=== PATIENT | male | born 1940 | race Caucasian/White ===

== ENCOUNTER 2017-10-08 21:05 | Inpatient (IN) | payer OTHER, MEDICARE ==
[~2017-10-08] VITALS: Ht 182.9 cm; Wt 88.3 kg
[2017-10-09 00:10] VITALS: BP 154/89; PULSE 108; TEMP 36.8; O2SAT 97; Ht 182.9 cm; Wt 88.3 kg
[2017-10-09] MEDS ORDERED: ATOR10TA82 PO (00:38)
[2017-10-09] MEDS ORDERED: LISI-788 PO (00:38)
[2017-10-09] MEDS ORDERED: PANT40TA PO (00:38)
[2017-10-09] MEDS ORDERED: ALUMINUM/MAGNESIUM/SIMETH (MAALOX MAX) 30 ML UDC PO PRN (01:45)
[2017-10-09] MEDS ORDERED: MAGNESIUM HYDROXIDE SUSP 30 ML UDC PO PRN (01:45)
[2017-10-09] MEDS ORDERED: POLYETHYLENE (MIRALAX) 17 GM PACK PO PRN (01:45)
[2017-10-09] MEDS ORDERED: ONDANSETRON INJ 2 MG/ML 2 ML VIAL IV PRN (01:45)
[2017-10-09] MEDS ORDERED: ZOLPIDEM TARTRATE 5 MG TAB PO PRN (01:45)
[2017-10-09] MEDS ORDERED: ACETAMINOPHEN 325 MG TAB PO PRN (01:45)
--- NOTE | 2017-10-09 01:45 | History and Physical ---
History & Physical Date & Time of Service: Oct 09, 2017 at 01:37 Chief Complaint: Multiple Pe Primary Care Physician: Sara Kim D.O. History of Present Illness Source: patient Patient is a 76 year old male with a PMH of HTN, HLD and Perforated peptic ulcer who presented to [facility] as a direct admit from [facility] secondary to a saddle embolism. He notes that he started developing shortness of breath 4 days ago. He was cleaning his house in preparation for family visiting when he suddenly develop acute shortness of breath. He was able to continue on his activities but he felt mildly short of breath. He notes over the next 3 days he started becoming more short of breath with exertion. Today he was only able to walk several steps before becoming short of breath. He has had a productive cough associated with this shortness of breath. He notes that 10 days ago he was travelling back from [place] on a business trip. He also notes that a few weeks ago he fell and hit his right knee on the ice which was swollen for a few days. He denies any leg swelling, calf pain, chest pain, palpitations, dizziness or pre-syncope. He denies any family history of blood clots. He has lost 20 pounds in the past few months secondary to his peptic ulcer that perforated. He denies any night sweats or chills or blood in his stool. He then went to [facility] where he had a CT scan done which was significant for multiple large PE with a minimal saddle embolism w/ R heart strain. An EKG showed ST depression with a RBBB. He was started on IV heparin w/ bolus. He was also given a duoneb and mag sulfate. Past Medical/Surgical History Medical Problems: (1) Pulmonary embolism Family History Noncontributory Social History Smoking Status: Former Smoker Smokeless Tobacco Use: No Alcohol Use: none Drug Use: none Marital Status: Housing status: lives alone Occupational Status: employed Immunizations History of Influenza Vaccine: Unknown History of Tetanus Vaccine?: Unknown History of Pneumococcal: Unknown History of Hepatitis B Vaccine: Unknown Allergies Coded Allergies: Aspirin (Verified Allergy, Unknown, n/a, 10/09/17) Ringing in ears Home Medications Scheduled Atorvastatin (Lipitor), 1 TAB PO DAILY Pantoprazole (Protonix), 40 MG PO DAILY Miscellaneous Medications Lisinopril/Hctz (Zestoretic 20MG/25MG), 1 TAB PO Review of Systems Constitutional: + weight loss, + fatigue, No fever, No chills, No sweats Respiratory: + cough, + sputum, + shortness of breath, + dyspnea on exertion, No dyspnea at rest, No hemoptysis Cardiovascular: No chest pain, No orthopnea, No edema, No claudication, No palpitations Abdomen: No pain, No nausea, No vomiting Musculoskeletal: No joint pain, No muscle pain, No swelling, No calf pain Genitourinary - Male: No hematuria, No dysuria Neurologic: No memory loss, No paralysis, No weakness, No numbness/tingling Hematologic / Lymphatic: No abnormal bleeding/bruising, No clotting problems, No swollen lymph nodes, No night sweats Physical Exam Vital Signs Date Time Temp Pulse Resp B/P (MAP) Pulse Ox O2 Delivery O2 Flow Rate FiO2 10/09/17 00:10 36.8 108 18 154/89 97 Room Air General Appearance: WD/WN, no apparent distress Head: normocephalic, atraumatic Eyes: normal inspection, PERRL, EOMI ENT: hearing grossly normal, pharynx normal Neck: supple, thyroid normal, no JVD, no carotid bruits, trachea midline Respiratory/Chest: lungs clear, no respiratory distress, no accessory muscle use Cardiovascular: regular rate, rhythm, no edema, no murmur, normal peripheral pulses Abdomen/GI: normal bowel sounds, non tender, soft Back: normal inspection Extremities/Musculoskelatal: normal inspection, no calf tenderness, no pedal edema, non-tender Neurologic/Psych: alert, normal mood/affect, oriented x 3 Skin: normal color, warm/dry, no rash Impression Assessment and Plan 76 year old male with a PMH of HLD, HTN and perforate peptic ulcer was transferred as a direct admit from [facility] secondary to a small saddle embolism Bilateral pulmonary embolism/small saddle embolism - recent low level trauma and recent travel - perform hypercoagulable workup - IV heparin w/ 1/2 bolus here as bolus given at [facility] - O2 per protocol - lower extremity venous doppler and echo ordered HLD - continue statin HTN - continue lisinopril/HCTZ Perforate peptic ulcer - continue protonix DVT - IV heparin FULL CODE Attending addendum: I have physically seen this patient, have supervised the medical residents activities, and agree with the H&P unless as otherwise noted. Assessment and Plan: Multiple bilateral pulmonary emboli/small saddle embolus-- Accepted in transfer from [facility]. The patient will be admitted to telemetry for serial cardiac enzymes, serial EKG's, cardiac rhythm monitoring and a 2-D echocardiogram with Dopplers. Risk factors include mild trauma and recent travel. Order hypercoagulable workup. Heparin drip standard weight-based with bolus as noted. Order lower extremity venous Dopplers. Troponin was mildly elevated at 0.16 prior to transfer suggesting probable right heart strain. Pulmonology and cardiology will be consulted. Continue other medications as noted above. Advanced Directives Existing Advance Directive: No Existing Living Will: No Existing Power of Branch Office Administrator: No Resuscitation Status VTE Prophylaxis Will order VTE Prophylaxis: Yes Social Service Consult None Apply
[2017-10-09] MEDS ORDERED: HEPARIN 25,000 UNIT/500ML D5W 500 ML IV SCH ×2 (02:00→11:10)
[2017-10-09] MEDS ORDERED: HEPARIN BOLUS IV ONE (02:00)
[2017-10-09 02:32] LABS: HEMATOCRIT 42.6 % (42-52); HEMOGLOBIN 14.9 g/dL (14.0-18.0); IG# 0.01 K/uL (0.00-0.02); LYMPH % 7.2 %; LYMPH ABS # 0.39 K/uL (1.2-3.4); MEAN CELL VOLUME 98.2 fL (80-100); MEAN CORPUSCULAR HEMOGLOBIN 34.3 pg (25-34); MEAN PLATELET VOLUME 10.1 fL (7.4-10.4); MONO % 1.9 %; NEUT % 90.7 %; NEUT ABS # 4.89 K/uL (1.4-6.5); PLATELET COUNT 144 K/uL (130-400); RED CELL DISTRIBUTION WIDTH CV 14.3 % (11.5-14.5); RED CELL DISTRIBUTION WIDTH SD 51.6 fL (36.4-46.3); WHITE BLOOD COUNT 5.39 K/uL (4.8-10.8)
[2017-10-09 02:41] LABS: PTT PATIENT 34.3 SECONDS (21.0-31.0)
[2017-10-09 02:58] LABS: ALBUMIN 3.1 gm/dl (3.4-5.0); CALCIUM 8.6 mg/dl (8.5-10.1); CREATININE 0.99 mg/dl (0.60-1.40); POTASSIUM 3.8 mmol/L (3.5-5.1); TOTAL PROTEIN 7.8 gm/dl (6.4-8.2)
[2017-10-09 04:26] VITALS: BP 141/89; PULSE 102; TEMP 36.3; O2SAT 95
--- NOTE | 2017-10-09 06:09 | DIAGNOSTIC IMAGING REPORT ---
VENOUS DOPPLER LWR EXT BILJosie CLINICAL HISTORY: 76 years-old Male presenting with PE. TECHNIQUE: Real-time grayscale and color and spectral Doppler ultrasound imaging of the veins of the bilateral lower extremities was performed. Compression and augmentation were also utilized. COMPARISON: None. FINDINGS: Right: Common femoral vein: Patent. Greater saphenous vein: Patent. Deep femoral vein: Patent. Femoral vein: Patent. Popliteal vein: Occlusive filling defect consistent with thrombus. Calf veins: Occlusive filling defects consistent with thrombus in the posterior tibial and peroneal veins. Anterior tibial vein patent. Left: Common femoral vein: Patent. Greater saphenous vein: Patent. Deep femoral vein: Patent. Femoral vein: Patent. Popliteal vein: Patent. Calf veins: Patent. Other: None. IMPRESSION: 1. Occlusive, acute deep venous thrombosis in the right popliteal, posterior tibial, and peroneal veins. 2. No deep venous thrombosis in the left lower leg. Notably, this is discrepant from the initial preliminary report. The report will be called/faxed according to standard departmental protocol. Electronically signed by: Rico Resendiz M.D. 10/09/2017 6:08 AM Dictated Date/Time: 10/09/2017 6:05 AM
[2017-10-09 06:40] LABS: PTT PATIENT 165.5 SECONDS (21.0-31.0)
[2017-10-09 07:40] VITALS: BP 118/72; PULSE 90; TEMP 36.7; O2SAT 94
[2017-10-09] MEDS ORDERED: ATORVASTATIN 10 MG TAB PO SCH (09:00)
[2017-10-09] MEDS ORDERED: LISINOPRIL/HCTZ 20/25MG TAB PO SCH (09:00)
[2017-10-09] MEDS ORDERED: PANTOprazole SOD 40 MG TAB PO SCH (09:00)
[2017-10-09 10:10] LABS: PTT PATIENT 106.4 SECONDS (21.0-31.0)
--- NOTE | 2017-10-09 10:57 | Family Medicine Progress Note ---
Progress Note Date of Service Oct 09, 2017. Subjective Pt reports a mild cough this morning, but is otherwise feeling well. Denies pain in his calves, although reports decreased sensation in his right foot and lower leg which is not new for him, and is a result of past foot surgery. Denies chest pain, difficulty breathing, otherwise feeling well. ROS See HPI for pertinent positives and negatives. Medications Current Inpatient Medications Medications (Trade) Dose Ordered Sig/Lissett Route Start Time Stop Time Status Last Admin Dose Admin Acetaminophen (Tylenol Tab) 650 mg Q4H PRN PO 10/09/17 01:45 11/08/17 01:44 10/09/17 07:45 650 MG Al Hydrox/Mg Hydrox/Simethicone (Maalox Max Susp) 15 ml Q4H PRN PO 10/09/17 01:45 11/08/17 01:44 Magnesium Hydroxide (Milk Of Magnesia Susp) 30 ml Q12H PRN PO 10/09/17 01:45 11/08/17 01:44 Zolpidem Tartrate (Ambien Tab) 5 mg HSZ PRN PO 10/09/17 01:45 11/08/17 01:44 10/09/17 02:27 5 MG Ondansetron HCl (Zofran Inj) 4 mg Q6H PRN IV 10/09/17 01:45 11/08/17 01:44 Polyethylene (Miralax Powder Packet) 17 gm DAILY PRN PO 10/09/17 01:45 11/08/17 01:44 Atorvastatin Calcium (Lipitor Tab) 10 mg DAILY PO 10/09/17 09:00 11/08/17 08:59 HCTZ/Lisinopril (Prinzide 20-25MG Tab) 1 tab DAILY PO 10/09/17 09:00 11/08/17 08:59 Pantoprazole Sodium (Protonix Tab) 40 mg DAILY PO 10/09/17 09:00 11/08/17 08:59 Heparin Sodium/ Dextrose 500 ml @ 30 mls/hr [id number] IV 10/09/17 02:00 11/08/17 01:59 10/09/17 02:26 30 MLS/HR Objective Vital Signs Date Time Temp Pulse Resp B/P (MAP) Pulse Ox O2 Delivery O2 Flow Rate FiO2 10/09/17 08:00 Nasal Cannula 3.0 10/09/17 07:40 36.7 90 14 118/72 (87) 94 Nasal Cannula 2.0 10/09/17 04:26 36.3 102 14 141/89 (106) 95 Nasal Cannula 2.0 10/09/17 04:00 Nasal Cannula 3.0 10/09/17 00:10 36.8 108 18 154/89 97 Room Air Physical Exam Notes: GENERAL: Awake, alert, well-appearing, in no distress. Nasal cannula in place. HENT: Normocephalic, atraumatic. EYES: Normal conjunctiva. Sclera non-icteric. NECK: Supple. FROM. No JVD. RESPIRATORY: Clear to auscultation. CARDIAC: Regular rate, normal rhythm. Extremities warm and well perfused. Pulses equal. ABDOMEN: Soft, non-distended. No tenderness to palpation. No rebound or guarding. No masses. LOWER EXTREMITIES: Calves are equal size bilaterally and non-tender. No edema. No discoloration. NEURO: No motor deficits noted. Decreased sensation in his right lower leg, pt says this is not new or different for him. SKIN: No rash or jaundice noted. Laboratory Results 10/09/17 02:09 Red Blood Count 4.34, Mean Corpuscular Volume 98.2, Mean Corpuscular Hemoglobin 34.3, Mean Corpuscular Hemoglobin Concent 35.0, Mean Platelet Volume 10.1, Neutrophils (%) (Auto) 90.7, Lymphocytes (%) (Auto) 7.2, Monocytes (%) (Auto) 1.9, Eosinophils (%) (Auto) 0.0, Basophils (%) (Auto) 0.0, Neutrophils # (Auto) 4.89, Lymphocytes # (Auto) 0.39, Monocytes # (Auto) 0.10, Eosinophils # (Auto) 0.00, Basophils # (Auto) 0.00 10/09/17 02:09 Test 10/09/17 02:09 10/09/17 09:33 White Blood Count 5.39 K/uL (4.8-10.8) Red Blood Count 4.34 M/uL (4.7-6.1) Hemoglobin 14.9 g/dL (14.0-18.0) Hematocrit 42.6 % (42-52) Mean Corpuscular Volume 98.2 fL (80-100) Mean Corpuscular Hemoglobin 34.3 pg (25-34) Mean Corpuscular Hemoglobin Concent 35.0 g/dl (32-36) Platelet Count 144 K/uL (130-400) Mean Platelet Volume 10.1 fL (7.4-10.4) Neutrophils (%) (Auto) 90.7 % Lymphocytes (%) (Auto) 7.2 % Monocytes (%) (Auto) 1.9 % Eosinophils (%) (Auto) 0.0 % Basophils (%) (Auto) 0.0 % Neutrophils # (Auto) 4.89 K/uL (1.4-6.5) Lymphocytes # (Auto) 0.39 K/uL (1.2-3.4) Monocytes # (Auto) 0.10 K/uL (0.11-0.59) Eosinophils # (Auto) 0.00 K/uL (0-0.5) Basophils # (Auto) 0.00 K/uL (0-0.2) RDW Standard Deviation 51.6 fL (36.4-46.3) RDW Coefficient of Variation 14.3 % (11.5-14.5) Immature Granulocyte % (Auto) 0.2 % Immature Granulocyte # (Auto) 0.01 K/uL (0.00-0.02) Anion Gap 13.0 mmol/L (3-11) Est Creatinine Clear Calc Drug Dose 70.8 ml/min Estimated GFR () 86.0 Estimated GFR (Non- 74.2 BUN/Creatinine Ratio 16.0 (10-20) Calcium Level 8.6 mg/dl (8.5-10.1) Total Bilirubin 0.6 mg/dl (0.2-1) Aspartate Amino Transf (AST/SGOT) 30 U/L (15-37) Alanine Aminotransferase (ALT/SGPT) 28 U/L (12-78) Alkaline Phosphatase 78 U/L (45-117) Troponin I 0.090 ng/ml (0-0.045) Total Protein 7.8 gm/dl (6.4-8.2) Albumin 3.1 gm/dl (3.4-5.0) Globulin 4.7 gm/dl (2.5-4.0) Albumin/Globulin Ratio 0.7 (0.9-2) Activated Partial Thromboplast Time 106.4 SECONDS (21.0-31.0) Partial Thromboplastin Ratio 4.1 Assessment and Plan 76 year old male with a PMH of HLD, HTN and perforate peptic ulcer was transferred as a direct admit from [facility] secondary to a small saddle embolism Assessment: B/L multiple PE elev troponin RBBB - age indeterminate Plan: Bilateral pulmonary embolism/small saddle embolism - first and provoked. Has elev trop 0.[address] depression noted diffusely through V leads with RBBB. No ST elev. Pulm and cardio consulted. May thrombolysis may be indicated in which case would need transferred. - h/o recent low level trauma and 6+ hour flight - hypercoagulable workup pending - IV heparin w/ / bolus here as bolus given at [facility] - O2 per protocol - lower extremity venous doppler and echo ordered HLD - continue statin HTN - continue lisinopril/HCTZ Perforate peptic ulcer - continue protonix DVT - IV heparin FULL CODE Continued [facility] stay due to: abnormal vital signs Discharge planning: other Resident Tracking Resident Involvement: Resident Care Provided Care Provided: Adult Hospital Medicine
--- NOTE | 2017-10-09 11:09 | Cardiology Consultation ---
Cardiology Consultation Date of Consultation: Oct 09, 2017. Requesting Physician: Renata Reason for Consultation: PE Pt evaluation today including: conversation w/ patient, physical exam, chart review, lab review, review of studies, review of inpatient medication list, conversation w/ attending History of Present Illness The patient is a 76-year-old gentleman without a known history of cardiac disease who has developed progressive dyspnea over the course of 2-3 weeks. Patient states that initially he had symptoms of an upper respiratory infection with a cough and some mild dyspnea with activity. The symptoms worsened significantly approximately 5 days ago and became quite severe approximately 2 days ago. At that point the patient had difficulty ambulating even a few feet without becoming severely short of breath. He had some associated cough. He did not have any fevers or chills. He did not describe pleuritic pain or any chest pain. He has not report any palpitations or sense of arrhythmia. He did report some occasional dizziness but no presyncopal symptoms. He did not have actual syncope. He has not report any lower extremity edema or pain in his legs. Generally speaking is an active individual was accustomed routine activity. He has not report limiting symptoms with activity such as dyspnea or chest discomfort. The patient did report falling on the ice recently and injuring his left knee. He also has recently come back from a cross-country plane flight. Based on the symptoms the patient presented to [facility]. There he was diagnosed with a pulmonary embolus. In fact he had several pulmonary emboli with a high clot burden. He was started on anticoagulation and transferred to [facility] for an additional evaluation. Currently the patient claims to be feeling well. He states that while in bed he is perfectly comfortable without chest pain or dyspnea. With ambulation or activity he will developed dyspnea. 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 Review of Systems Per HPI. No difficulty with eating or drinking. No other constitutional symptoms such as fevers or chills. No changes bowel or bladder habits. All Other Systems: Reviewed and Negative Allergies Coded Allergies: Aspirin (Verified Allergy, Unknown, n/a, 10/09/17) Ringing in ears Medications Current Inpatient Medications Medications (Trade) Dose Ordered Sig/Lissett Route Start Time Stop Time Status Last Admin Dose Admin Acetaminophen (Tylenol Tab) 650 mg Q4H PRN PO 10/09/17 01:45 11/08/17 01:44 10/09/17 07:45 650 MG Al Hydrox/Mg Hydrox/Simethicone (Maalox Max Susp) 15 ml Q4H PRN PO 10/09/17 01:45 11/08/17 01:44 Magnesium Hydroxide (Milk Of Magnesia Susp) 30 ml Q12H PRN PO 10/09/17 01:45 11/08/17 01:44 Zolpidem Tartrate (Ambien Tab) 5 mg HSZ PRN PO 10/09/17 01:45 11/08/17 01:44 10/09/17 02:27 5 MG Ondansetron HCl (Zofran Inj) 4 mg Q6H PRN IV 10/09/17 01:45 11/08/17 01:44 Polyethylene (Miralax Powder Packet) 17 gm DAILY PRN PO 10/09/17 01:45 11/08/17 01:44 Atorvastatin Calcium (Lipitor Tab) 10 mg DAILY PO 10/09/17 09:00 11/08/17 08:59 10/09/17 10:57 10 MG HCTZ/Lisinopril (Prinzide 20-25MG Tab) 1 tab DAILY PO 10/09/17 09:00 11/08/17 08:59 10/09/17 10:58 1 TAB Pantoprazole Sodium (Protonix Tab) 40 mg DAILY PO 10/09/17 09:00 11/08/17 08:59 10/09/17 10:58 40 MG Heparin Sodium/ Dextrose 500 ml @ 27 mls/hr [id number] IV 10/09/17 11:10 11/08/17 01:59 UNV Physical Exam Vital Signs Past 12 Hours Date Time Temp Pulse Resp B/P (MAP) Pulse Ox O2 Delivery O2 Flow Rate FiO2 10/09/17 08:00 Nasal Cannula 3.0 10/09/17 07:40 36.7 90 14 118/72 (87) 94 Nasal Cannula 2.0 10/09/17 04:26 36.3 102 14 141/89 (106) 95 Nasal Cannula 2.0 10/09/17 04:00 Nasal Cannula 3.0 10/09/17 00:10 36.8 108 18 154/89 97 Room Air The patient is alert and oriented. Mood and affect appeared normal. He answered all questions appropriately. HEENT: Pupils are equal and reactive to light and accommodation. Extraocular movements are intact. The sclerae are anicteric. Neuro: Cranial nerves intact Neck: Patient's neck is supple. He has palpable carotid pulses bilaterally without bruits on auscultation. There is no evidence of jugular venous distention but his neck tissue was somewhat redundant. The thyroid is not enlarged. Lungs: Clear to auscultation bilaterally. He has good air movement without use of accessory muscles. No rales wheezes or rhonchi. Cardiac: Heart demonstrates a regular rate and rhythm. Normal S1 and S2. No murmurs on examination. Pulses: The patient has palpable radial pulses bilaterally that are equal in intensity Extremities: There was no evidence of hypoperfusion. There is no cyanosis or clubbing. There is no edema. Skin: I did not appreciate any rashes on examination today. Data Laboratory Results: Last 24 Hours Test 10/09/17 02:09 10/09/17 05:15 10/09/17 09:33 White Blood Count 5.39 K/uL Red Blood Count 4.34 M/uL Hemoglobin 14.9 g/dL Hematocrit 42.6 % Mean Corpuscular Volume 98.2 fL Mean Corpuscular Hemoglobin 34.3 pg Mean Corpuscular Hemoglobin Concent 35.0 g/dl Platelet Count 144 K/uL Mean Platelet Volume 10.1 fL Neutrophils (%) (Auto) 90.7 % Lymphocytes (%) (Auto) 7.2 % Monocytes (%) (Auto) 1.9 % Eosinophils (%) (Auto) 0.0 % Basophils (%) (Auto) 0.0 % Neutrophils # (Auto) 4.89 K/uL Lymphocytes # (Auto) 0.39 K/uL Monocytes # (Auto) 0.10 K/uL Eosinophils # (Auto) 0.00 K/uL Basophils # (Auto) 0.00 K/uL RDW Standard Deviation 51.6 fL RDW Coefficient of Variation 14.3 % Immature Granulocyte % (Auto) 0.2 % Immature Granulocyte # (Auto) 0.01 K/uL Activated Partial Thromboplast Time 34.3 SECONDS 165.5 SECONDS 106.4 SECONDS Partial Thromboplastin Ratio 1.3 6.4 4.1 Sodium Level 136 mmol/L Potassium Level 3.8 mmol/L Chloride Level 103 mmol/L Carbon Dioxide Level 20 mmol/L Anion Gap 13.0 mmol/L Blood Urea Nitrogen 16 mg/dl Creatinine 0.99 mg/dl Est Creatinine Clear Calc Drug Dose 70.8 ml/min Estimated GFR () 86.0 Estimated GFR (Non- 74.2 BUN/Creatinine Ratio 16.0 Random Glucose 154 mg/dl Calcium Level 8.6 mg/dl Total Bilirubin 0.6 mg/dl Aspartate Amino Transf (AST/SGOT) 30 U/L Alanine Aminotransferase (ALT/SGPT) 28 U/L Alkaline Phosphatase 78 U/L Troponin I 0.090 ng/ml Total Protein 7.8 gm/dl Albumin 3.1 gm/dl Globulin 4.7 gm/dl Albumin/Globulin Ratio 0.7 Imaging: Lower extremity ultrasound revealed acute thrombus in the right leg EKG: Normal sinus rhythm with right bundle branch block Telemetry reviewed: Normal sinus rhythm Echocardiogram performed today revealed evidence of RV strain with RV dilation reduced function. LV systolic function was normal. Estimated pulmonary pressures were relatively normal. No significant valvular disease. I reviewed his records from [facility] including the report of the CT scan Assessment & Plan 1. Acute pulmonary embolus: The exact timeframe within which the patient developed thrombus is unclear. This may have started several weeks ago become progressive as there was a higher clot burden. Whether his injury to his knee resulted in thrombus is unclear. Does have some risk factors related to his frequent cross-country plane flights. Despite obvious right ventricular strain , he does not have any hemodynamic instability. This suggests a better prognosis overall. He is very mildly elevated cardiac troponin which is likely related to right ventricular strain. His BNP was also elevated at [facility]. Both of these suggest a worse prognosis in hemodynamic dynamically compromised patient's, but since he is hemodynamically stable his overall prognosis is more favorable. He has been started on systemic anticoagulation. Supportive measures of also been instituted with supplemental oxygen therapy. In situations of this nature aggressive diuresis should be avoided as should aggressive or over hydration. For hemodynamic collapse or evidence of her current thrombosis and embolism more aggressive measures such as thrombolysis or catheter based therapy may be indicated.
--- NOTE | 2017-10-09 11:16 | ECHOCARDIOGRAM REPORT ---
*NOTICE TO RECEIVING [employer] AGENCY This information is strictly Confidential and protected under [place] law. [place] law prohibits you from making any further disclosure of this information unless further disclosure is expressly permitted by the written consent of the person to whom it pertains or is authorized by law. A general authorization for the release of medical or other information is not sufficient for this purpose. Hospital accepts no responsibility if the information is made available to any other person, INCLUDING THE PATIENT. Interpretation Summary * Name: FREDRICK CERDA Study Date: 10/09/2017 08:48 AM BP: 118/72 mmHg * Patient Location: .2E\S\E202\S\1 HR: 90 * : 1940 (M/d/yyyy) Gender: Male Height: 72 in * Age: 76 yrs Ethnicity: CA Weight: 195 lb * Ordering Physician: Milton Drake * Referring Physician: Sara Kim D.O. * Performed By: Nury Quan RDCS * * Reason For Study: PULMONARY EMBOLISM * BSA: 2.1 m2 * -- Conclusions -- * Left ventricular systolic function is normal. * Grade I diastolic dysfunction, (abnormal relaxation pattern). * Flattened septum is consistent with RV pressure/volume overload. * The right ventricle is moderate to severely dilated. * The right atrium is mildly dilated. * The right ventricular systolic function is moderately reduced. Procedure Details * A complete two-dimensional transthoracic echocardiogram was performed (2D, M-mode, Doppler and color flow Doppler). Left Ventricle * The left ventricle is normal in size. * There is normal left ventricular wall thickness. * Ejection Fraction = 55-60%. * Left ventricular systolic function is normal. * Grade I diastolic dysfunction, (abnormal relaxation pattern). * Flattened septum is consistent with RV pressure/volume overload. Right Ventricle * The right ventricle is moderate to severely dilated. * The right ventricular systolic function is moderately reduced. Atria * The left atrial size is normal. * The right atrium is mildly dilated. Mitral Valve * The mitral valve is grossly normal. * Significant mitral regurgitation is absent. Tricuspid Valve * The tricuspid valve is not well visualized, but is grossly normal. * There is mild tricuspid regurgitation. * Estimated right ventricular pressure approximately 30 millimeters of mercury Aortic Valve * The aortic valve is normal in structure and function. * The aortic valve is trileaflet. * No hemodynamically significant valvular aortic stenosis. * There is no significant aortic regurgitation. Pulmonic Valve * The pulmonic valve is not well visualized. Great Vessels * The aortic root is normal size. Right Ventricle * There are regional wall motion abnormalities. * Positive Tyler sign Great Vessels * Normal inferior vena cava diameter and respiratory variation suggests normal central venous pressure. MMode 2D Measurements and Calculations IVSd 1.0 cm IVSs 1.4 cm LVIDd 3.6 cm LVIDs 2.7 cm LVPWd 1.2 cm LVPWs 1.4 cm IVS/LVPW 0.83 FS 26.8 % EDV(Teich) 55.8 ml ESV(Teich) 26.1 ml EF(Teich) 53.2 % EDV(cubed) 48.1 ml ESV(cubed) 18.9 ml EF(cubed) 60.7 % % IVS thick 32.1 % % LVPW thick 10.7 % LV mass(C)d 131.1 grams LV mass(C)dI 62.2 grams/m\S\2 LV mass(C)s 114.7 grams LV mass(C)sI 54.4 grams/m\S\2 SV(Teich) 29.7 ml SI(Teich) 14.1 ml/m\S\2 SV(cubed) 29.2 ml SI(cubed) 13.9 ml/m\S\2 Ao root diam 3.7 cm Ao root area 10.5 cm\S\2 LA dimension 2.7 cm LA/Ao 0.74 LVAd ap4 18.8 cm\S\2 LVLd ap4 7.8 cm EDV(MOD-sp4) 39.6 ml EDV(sp4-el) 38.1 ml LVAs ap4 11.4 cm\S\2 LVLs ap4 6.7 cm ESV(MOD-sp4) 19.2 ml ESV(sp4-el) 16.6 ml EF(MOD-sp4) 51.5 % EF(sp4-el) 56.4 % LVAd ap2 18.9 cm\S\2 LVLd ap2 7.6 cm EDV(MOD-sp2) 38.5 ml EDV(sp2-el) 40.0 ml LVAs ap2 11.6 cm\S\2 LVLs ap2 6.9 cm ESV(MOD-sp2) 19.7 ml ESV(sp2-el) 16.5 ml EF(MOD-sp2) 48.8 % EF(sp2-el) 58.8 % LVLd %diff -2.97 % EDV(MOD-bp) 38.7 ml LVLs %diff 3.3 % ESV(MOD-bp) 19.7 ml EF(MOD-bp) 49.2 % SV(MOD-sp4) 20.4 ml SI(MOD-sp4) 9.7 ml/m\S\2 SV(MOD-sp2) 18.8 ml SI(MOD-sp2) 8.9 ml/m\S\2 SV(MOD-bp) 19.0 ml SI(MOD-bp) 9.0 ml/m\S\2 SV(sp4-el) 21.5 ml SI(sp4-el) 10.2 ml/m\S\2 SV(sp2-el) 23.5 ml SI(sp2-el) 11.1 ml/m\S\2 Doppler Measurements and Calculations MV E max dany 48.9 cm/sec MV A max dany 92.6 cm/sec MV E/A 0.53 MV dec time 0.23 sec Ao V2 max 119.1 cm/sec Ao max PG 5.7 mmHg Ao max PG (full) 0.64 mmHg LV V1 max PG 5.0 mmHg LV V1 max 112.2 cm/sec TR max dany 256.2 cm/sec
--- NOTE | 2017-10-09 11:40 | Pulmonary Consultation ---
History General Date of Service: Oct 09, 2017. Stated Complaint: Multiple Pe HPI The patient is a 76 year old male who presents to [facility] with complaints of Multiple Pe. The patient's primary care provider is Sara Kim D.O.. Historian: patient, other (Medical records) Onset: just prior to arrival Complaint Status: persistent Review of Systems Constitutional: reports: no symptoms, other (Cold symptoms) ENT: reports: no symptoms Cardiovascular: reports: no symptoms Respiratory: reports: shortness of breath Musculoskeletal: reports: no symptoms Neurologic: reports: no symptoms Psychiatric: reports: no symptoms Endocrine: no symptoms Hematologic / Lymphatic: no symptoms Allergic / Immunologic: no symptoms Past Medical History Past Medical History: Reviewed in the chart. Social History Smoking Status: Former Smoker Marital status: Housing status: lives alone Occupational Status: employed Immunizations History of Influenza Vaccine: Unknown History of Tetanus Vaccine?: Unknown History of Pneumococcal: Unknown History of Hepatitis B Vaccine: Unknown Allergies Coded Allergies: Aspirin (Verified Allergy, Unknown, n/a, 10/09/17) Ringing in ears Current Medications Reported Home Medications Medications Dose Route/Sig Max Daily Dose Days Date Category Protonix (Pantoprazole Sodium) 40 Mg Tab 40 Mg PO DAILY 10/09/17 Reported Zestoretic 20MG/25MG (HCTZ/Lisinopril) Tab 1 Tab PO 10/09/17 Reported Lipitor (Atorvastatin Calcium) 10 Mg Tab 1 Tab PO DAILY 30 10/09/17 Reported Physical Physical Exam Vital Signs: Date Time Temp Pulse Resp B/P (MAP) Pulse Ox O2 Delivery O2 Flow Rate FiO2 10/09/17 08:00 Nasal Cannula 3.0 10/09/17 07:40 36.7 90 14 118/72 (87) 94 Nasal Cannula 2.0 10/09/17 04:26 36.3 102 14 141/89 (106) 95 Nasal Cannula 2.0 10/09/17 04:00 Nasal Cannula 3.0 10/09/17 00:10 36.8 108 18 154/89 97 Room Air General Appearance: WELL-APPEARING, NO APPARENT DISTRESS Eyes: NO DISCHARGE, SCLERAE NORMAL ENT: NORMAL MOUTH EXAM, NORMAL THROAT EXAM Neck: NO TENDERNESS Respiratory: BREATH SOUNDS NORMAL Cardiovasular: REGULAR RATE/RHYTHM, NORMAL S1S2, NO M/G/R, NO MURMUR, other ( No evidence of P2) Abdomen: NON TENDER, NO REBOUND, NO MASSES Upper Extremities: NO EDEMA Lower Extremities: NO EDEMA, other (Homans sign is negative) Neuro: ALERT, ORIENTED x 3, NORMAL MOTOR EXAM, NORMAL SENSATION Psychiatric: NORMAL AFFECT Diagnostics Labs Results Past 24 Hours Test 10/09/17 02:09 10/09/17 05:15 10/09/17 09:33 Range/Units White Blood Count 5.39 4.8-10.8 K/uL Red Blood Count 4.34 4.7-6.1 M/uL Hemoglobin 14.9 14.0-18.0 g/dL Hematocrit 42.6 42-52 % Mean Corpuscular Volume 98.2 80-100 fL Mean Corpuscular Hemoglobin 34.3 25-34 pg Mean Corpuscular Hemoglobin Concent 35.0 32-36 g/dl Platelet Count 144 130-400 K/uL Mean Platelet Volume 10.1 7.4-10.4 fL Neutrophils (%) (Auto) 90.7 % Lymphocytes (%) (Auto) 7.2 % Monocytes (%) (Auto) 1.9 % Eosinophils (%) (Auto) 0.0 % Basophils (%) (Auto) 0.0 % Neutrophils # (Auto) 4.89 1.4-6.5 K/uL Lymphocytes # (Auto) 0.39 1.2-3.4 K/uL Monocytes # (Auto) 0.10 0.11-0.59 K/uL Eosinophils # (Auto) 0.00 0-0.5 K/uL Basophils # (Auto) 0.00 0-0.2 K/uL RDW Standard Deviation 51.6 36.4-46.3 fL RDW Coefficient of Variation 14.3 11.5-14.5 % Immature Granulocyte % (Auto) 0.2 % Immature Granulocyte # (Auto) 0.01 0.00-0.02 K/uL Activated Partial Thromboplast Time 34.3 165.5 106.4 21.0-31.0 SECONDS Partial Thromboplastin Ratio 1.3 6.4 4.1 Sodium Level 136 136-145 mmol/L Potassium Level 3.8 3.5-5.1 mmol/L Chloride Level 103 98-107 mmol/L Carbon Dioxide Level 20 21-32 mmol/L Anion Gap 13.0 3-11 mmol/L Blood Urea Nitrogen 16 7-18 mg/dl Creatinine 0.99 0.60-1.40 mg/dl Est Creatinine Clear Calc Drug Dose 70.8 ml/min Estimated GFR () 86.0 Estimated GFR (Non- 74.2 BUN/Creatinine Ratio 16.0 10-20 Random Glucose 154 70-99 mg/dl Calcium Level 8.6 8.5-10.1 mg/dl Total Bilirubin 0.6 0.2-1 mg/dl Aspartate Amino Transf (AST/SGOT) 30 15-37 U/L Alanine Aminotransferase (ALT/SGPT) 28 12-78 U/L Alkaline Phosphatase 78 45-117 U/L Troponin I 0.090 0-0.045 ng/ml Total Protein 7.8 6.4-8.2 gm/dl Albumin 3.1 3.4-5.0 gm/dl Globulin 4.7 2.5-4.0 gm/dl Albumin/Globulin Ratio 0.7 0.9-2 Diagnostic Radiology PTT is therapeutic on heparin drip, CAT scan of the chest was reviewed from [facility] showing saddle emboli with multiple PE and RV to LV ratio of more than 0.9 , positive troponin as well. Impression Assessment and Plan 1. Multiple PE with saddle embolus. The patient presented with shortness of breath walking less than 20 feet. The patient had recent 3 trips to [facility] plane was [address] The patient recently had injury to his left knee 6 weeks ago as well. Likely the immobility is what triggered his venous thromboembolic event. Although the patient is not having shortness of breath at rest however he is extremely short of breath with exertion. Patient has no family history of venous thromboembolic event and he does not have past history as well himself. The patient does not have any history of recent bleeding, the injury occurred to his left knee was 6 weeks ago. He does not have any hematochezia hemoptysis or hematemesis, no melanotic stool. He did not have any recent accidents or recent fall except 6 weeks ago. His symptoms started gradually for the past 2 weeks and he thought it is related to cold on the. The patient went to a meeting in [place] where he could not even complete the walk coming out of the meeting. He went to [facility] ER and he felt extremely short of breath even walking from his car to the emergency room. His workup revealed pulmonary embolism and he was transferred to us for further management. Plan: 1. The patient with dyspnea on exertion less than 20 feet, saddle PE, RV to LV ratio more than 0.9, positive troponin of the blood test, RV strain pattern, he meets the criteria for catheter thrombolysis. ( OPTALYSE PE STUDY, June 2017 ). 2. Continue with heparin. 3. Depending on his insurance, the patient would be afterwards bridged to oral Coumadin or NOAC. Treatment should continue for at least 6 months. 4. In the event of recurrence of venous thromboembolic event in the future, evaluation for CTEPH will be needed with VQ scan. 5. No need for venous duplex of the lower extremities. 6. Follow the echo report to evaluate for pulmonary artery pressure. 7. Cardiology consult appreciated. 8. Discussed with Dr. Salguero to transfer the patient to a tertiary care center for catheter thrombolysis. However institution does not have this technology. Thank you for your kind referral.
[2017-10-09 11:45] VITALS: BP 130/81; PULSE 92; TEMP 36.7; O2SAT 96
[2017-10-09] MEDS ORDERED: [UNRECOGNIZED DRUG - CODE] IV (14:53)
--- NOTE | 2017-10-09 15:12 | Discharge Instructions ---
Discharge Instructions Date of Service Oct 09, 2017. Admission Reason for Admission: Multiple Pe Discharge Discharge Diagnosis / Problem: Saddle Pulmonary Embolism Discharge Goals Goal(s): Diagnostic testing, Therapeutic intervention Activity Recommendations Activity Level: Up Ad Bhakti . Additional Information Patient informed of condition: Yes Advance Directives: No DNR: No Level of Care: Other Communicable Disease: No Prognosis: Stable Oxygen at (LPM): 3 [place] Catheter: No Instructions / Follow-Up Instructions / Follow-Up Pt admitted to [address] for SOB found to have extensive pulmonary embolism , thrombus in left and right main pulmonary arteries as well as a small saddle embolus. - Extensive thrombus ext into the segmental pulmonary artery branches of all lobes. - Significant right heart enlargement with straightening of the interventricular septum. - Seen by cardiology and pulmonary here. Discussed risks and benefits of thrombolytic treatment/surgical treatment at [facility] vs continuing heparin drip here , vs determining that heparin drip is sufficient at [facility]. Discussed the same with label paster and cardiothoracic surg at [facility]. - Hemodynamically stable here -- Decision made to transfer for further eval and treatment at [facility] via life flight. Current Hospital Diet Patient's current hospital diet: Regular Diet Discharge Diet Recommended Diet: Regular Diet Pending Studies Studies pending at discharge: no Medical Emergencies . Who to Call and When: Medical Emergencies: If at any time you feel your situation is an emergency, please call 911 immediately. . Non-Emergent Contact Non-Emergency issues call your: Primary Care Provider . . "Provider Documentation" section prepared by Angela Diaz. . Core Measure Problem Core Measures: VTE VTE Core Measures Date of VTE Diagnosis: Oct 08, 2017 (diagnosed at [facility]) Time of VTE Diagnosis: 15:19 Reason no anticoag overlap I/P: Treatment provided - N/A Reason no anticoag overlap @DC: Treatment provided - N/A
[2017-10-09 15:29] VITALS: BP 130/81; PULSE 92; TEMP 36.7; O2SAT 96
--- NOTE | 2017-10-09 18:25 | Discharge Summary ---
Discharge Summary Date of Service Oct 09, 2017. Discharge Summary Admission Date: Oct 09, 2017 at 00:23 Discharge Date: Oct 09, 2017 Discharge Disposition: Acute care facility (peru) Principal Diagnosis: extensive PE/saddle embolus Immunizations: Have You Had Influenza Vaccine: Unknown History of Tetanus Vaccine?: Unknown History of Pneumococcal: Unknown History of Hepatitis B Vaccine: Unknown Procedures: CT chest done at [facility] showing extensive b/l PE / saddle echo: Interpretation Summary * Name: FREDRICK CERDA Study Date: 10/09/2017 08:48 AM BP: 118/72 mmHg * Patient Location: .2E\S\E202\S\1 HR: 90 * : 1940 (M/d/yyyy) Gender: Male Height: 72 in * Age: 76 yrs Ethnicity: CA Weight: 195 lb * Ordering Physician: Milton Drake * Referring Physician: Sara Kim D.O. * Performed By: Nury Quan RDCS * * Reason For Study: PULMONARY EMBOLISM * BSA: 2.1 m2 * -- Conclusions -- * Left ventricular systolic function is normal. * Grade I diastolic dysfunction, (abnormal relaxation pattern). * Flattened septum is consistent with RV pressure/volume overload. * The right ventricle is moderate to severely dilated. * The right atrium is mildly dilated. * The right ventricular systolic function is moderately reduced. Procedure Details * A complete two-dimensional transthoracic echocardiogram was performed (2D, M-mode, Doppler and color flow Doppler). Left Ventricle * The left ventricle is normal in size. * There is normal left ventricular wall thickness. * Ejection Fraction = 55-60%. * Left ventricular systolic function is normal. * Grade I diastolic dysfunction, (abnormal relaxation pattern). * Flattened septum is consistent with RV pressure/volume overload. Right Ventricle * The right ventricle is moderate to severely dilated. * The right ventricular systolic function is moderately reduced. Atria * The left atrial size is normal. * The right atrium is mildly dilated. Mitral Valve * The mitral valve is grossly normal. * Significant mitral regurgitation is absent. Tricuspid Valve * The tricuspid valve is not well visualized, but is grossly normal. * There is mild tricuspid regurgitation. * Estimated right ventricular pressure approximately 30 millimeters of mercury Aortic Valve * The aortic valve is normal in structure and function. * The aortic valve is trileaflet. * No hemodynamically significant valvular aortic stenosis. * There is no significant aortic regurgitation. Pulmonic Valve * The pulmonic valve is not well visualized. Great Vessels * The aortic root is normal size. Right Ventricle * There are regional wall motion abnormalities. * Positive Tyler sign Great Vessels * Normal inferior vena cava diameter and respiratory variation suggests normal central venous pressure. Last 24 Hours Test 10/09/17 02:09 10/09/17 05:15 10/09/17 09:33 White Blood Count 5.39 K/uL Red Blood Count 4.34 M/uL Hemoglobin 14.9 g/dL Hematocrit 42.6 % Mean Corpuscular Volume 98.2 fL Mean Corpuscular Hemoglobin 34.3 pg Mean Corpuscular Hemoglobin Concent 35.0 g/dl Platelet Count 144 K/uL Mean Platelet Volume 10.1 fL Neutrophils (%) (Auto) 90.7 % Lymphocytes (%) (Auto) 7.2 % Monocytes (%) (Auto) 1.9 % Eosinophils (%) (Auto) 0.0 % Basophils (%) (Auto) 0.0 % Neutrophils # (Auto) 4.89 K/uL Lymphocytes # (Auto) 0.39 K/uL Monocytes # (Auto) 0.10 K/uL Eosinophils # (Auto) 0.00 K/uL Basophils # (Auto) 0.00 K/uL RDW Standard Deviation 51.6 fL RDW Coefficient of Variation 14.3 % Immature Granulocyte % (Auto) 0.2 % Immature Granulocyte # (Auto) 0.01 K/uL Activated Partial Thromboplast Time 34.3 SECONDS 165.5 SECONDS 106.4 SECONDS Partial Thromboplastin Ratio 1.3 6.4 4.1 Sodium Level 136 mmol/L Potassium Level 3.8 mmol/L Chloride Level 103 mmol/L Carbon Dioxide Level 20 mmol/L Anion Gap 13.0 mmol/L Blood Urea Nitrogen 16 mg/dl Creatinine 0.99 mg/dl Est Creatinine Clear Calc Drug Dose 70.8 ml/min Estimated GFR () 86.0 Estimated GFR (Non- 74.2 BUN/Creatinine Ratio 16.0 Random Glucose 154 mg/dl Calcium Level 8.6 mg/dl Total Bilirubin 0.6 mg/dl Aspartate Amino Transf (AST/SGOT) 30 U/L Alanine Aminotransferase (ALT/SGPT) 28 U/L Alkaline Phosphatase 78 U/L Troponin I 0.090 ng/ml Total Protein 7.8 gm/dl Albumin 3.1 gm/dl Globulin 4.7 gm/dl Albumin/Globulin Ratio 0.7 Consultations: pulmonary cardiology Medication Reconciliation New Medications: Heparin Sod (Porcine) (Heparin Sodium) 1,000 Unit/Ml Inj 1 DROP IV DAILY, #1 1 gtt UD Continue heparin drip Continued Medications: Atorvastatin (Lipitor) 10 Mg Tab 1 TAB PO DAILY for 30 Days, #30 TAB 5 Refills Lisinopril/Hctz (Zestoretic 20MG/25MG) Tab 1 TAB PO, TAB Pantoprazole (Protonix) 40 Mg Tab 40 MG PO DAILY, #30 TAB Discharge Exam Physical Exam: General Appearance: no apparent distress Eyes: EOMI ENT: hearing grossly normal Neck: trachea midline Respiratory/Chest: no respiratory distress, no accessory muscle use Extremities: normal inspection 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, alert Skin: normal color, warm/dry Hospital Course saddle PE -initially came to [facility] due to severe PEDERSON - found to have extensive PE/ small saddle - transferred here on heparin gtt -R heart strain/RV dysfunction (+) troponin - pulmonary/critical care felt met criteria for cath directed fibrinolysis -d/w [facility] [place] critical care and CT surgery - both felt pt warranted evaluation for definitive approach - although could not be sure (of course) that an approach beyond heparin gtt would be implemented once fully evaluating - -> d/w pt and he appreciated the careful thought and processes involved in his care to best attempt to reach optimal outcome - and even if that was that he would be on on the same heparin that was started at [facility], he was willing to have further evaluations at [facility] for more definitive approach to care -stable for transfer Total Time Spent: Greater than 30 minutes This includes examination of the patient, discharge planning, medication reconciliation, and communication with other providers. Discharge Instructions Please refer to the electronic Patient Visit Report (Discharge Instructions) for additional information. Additional Copies To Sara Kim D.O.
== END 2017-10-09 15:53 | disposition short-term general hospital (02) | DRG 175 ==
LOC: C.2E 10-09 00:23
PROVIDERS: ADMIT Hospitalist; ATTEND Hospitalist
DX: I26.92 Saddle embolus of pulmonary artery without acute cor pulmonale (principal); K27.5 Chronic or unspecified peptic ulcer, site unspecified, with perforation; I26.99 Other pulmonary embolism without acute cor pulmonale; R79.89 Other specified abnormal findings of blood chemistry; I45.10 Unspecified right bundle-branch block; I10 Essential (primary) hypertension; E78.5 Hyperlipidemia, unspecified; Z87.891 Personal history of nicotine dependence; Z79.899 Other long term (current) drug therapy; Z88.6 Allergy status to analgesic agent; Z90.49 Acquired absence of other specified parts of digestive tract; Z98.890 Other specified postprocedural states